=== PATIENT | female | born 1980 | race Caucasian/White ===

== ENCOUNTER → 2025-01-13 | Outpatient (CLI) | payer OTHER ==
[~2025-01-13] MED LIST: BCP; LORA.5 PO; OXYACE5T PO; POTA10T PO
== END ==
LOC: LAB SHORT 17:30 → LAB 17:30
DX: L02.01 Cutaneous abscess of face (principal)
CPT/HCPCS: 87070; 87077; 87147; 87186; 87205

== ENCOUNTER 2025-04-04 15:29 | Observation (INO) | payer OTHER ==
[~2025-04-04] VITALS: Ht 160 cm; Wt 92.2 kg
[2025-04-04 17:11] VITALS: BP 140/101
[2025-04-04] MEDS ORDERED: Amlodipine Bes2.5 MG PO (17:17)
[2025-04-04] MEDS ORDERED: Prinivil10 MG PO (17:17)
[2025-04-04] MEDS ORDERED: OMEP20ER PO (17:18)
[2025-04-04] MEDS ORDERED: Aspir 8181 MG PO (17:19)
[2025-04-04] MEDS ORDERED: Vancomycin (Pharmacy Consult) IV PRN (17:45)
[2025-04-04] MEDS ORDERED: FLU VACC TS2025-26(6MOS UP)/PF 45 MCG/0.5 ML SYRINGE IM ONE (17:50)
[2025-04-04] MEDS ORDERED: NS 1,000 ML IV SCH (18:00)
--- NOTE | 2025-04-04 18:36 | NUR ---
DIRECT ADMIT FROM HOME. DIAGNOSED WITH BACTEREMIA. GENERAL ADULT ADMISSION ORDERS PLACED PER DR. SALAZAR VIA TELEPHONE. PK CURRENTLY DOWN. PT UP AD [place]. PLAN FOR IV FLUIDS AND IV ANTIBIOTICS.
[2025-04-04 19:47] VITALS: BP 133/93
[2025-04-04] MEDS ORDERED: DiphenhydrAMINE HCl 50 MG/ML 1ML Vial IV PRN (21:40)
[2025-04-04] MEDS ORDERED: DiphenhydrAMINE HCl 50 MG/ML 1ML Vial IV ONE (21:40)
[2025-04-05 04:37] LABS: BASOPHILS ABSOLUTE AUTO 0.04 K/mm3 (0.00-0.23); BASOPHILS PERCENT AUTO 0 % (0-2); EOSINOPHILS ABSOLUTE AUTO 0.19 K/mm3 (0.00-0.68); EOSINOPHILS PERCENT AUTO 2 % (0-6); Hematocrit 30.6 % (33.0-51.0); Hemoglobin 9.7 g/dL (11.5-16.0); IMMATURE GRAN ABSOLUTE AUTO 0.03 K/mm3 (0.00-0.10); IMMATURE GRAN PERCENT AUTO 0 % (0-1); LYMPHOCYTES ABSOLUTE AUTO 4.00 K/mm3 (0.84-5.20); LYMPHOCYTES PERCENT AUTO 38 % (21-46); MONOCYTES ABSOLUTE AUTO 1.05 K/mm3 (0.16-1.47); MONOCYTES PERCENT AUTO 10 % (4-13); Mean Corpuscular HGB Conc 31.7 g/dL (31.5-36.5); Mean Corpuscular Volume 86 fL (80-100); NEUTROPHILS ABSOLUTE AUTO 5.22 K/mm3 (1.96-9.15); NEUTROPHILS PERCENT AUTO 50 % (41-73); NRBC ABSOLUTE 0.00 K/mm3 (0.00-0.02); NRBC Auto 0.0 /100 WBC (0.0-0.2); Platelet Count 516 K/mm3 (150-400); RDW Coefficient Variation 14.3 % (11.7-14.2); RDW Standard Deviation 45.1 fL (35.1-46.3)
--- NOTE | 2025-04-05 05:03 | NUR ---
SHIFT SUMMARY 44 YR F ADMITTED ON 04/04/25. FULL CODE. AFTER FIRST DOSE OF IV VANCOMYCIN, PT EXPERIENCED REDNESS IN HER FACE AND ITCHING OF HER HANDS. 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 IV BENADRY WAS ORDERED AND ADMINISTERED W/ GOOD RESULTS. PER DOC AND PHARMACY, NEXT DOSE OF VANCO WILL BE RAN AT 1/2 RATE. PRN ORDER FOR BENADRYL IN CASE OF REPEAT SX. PT IS A&O X4 AND INDEPENDANT IN THE ROOM. ABLE TO MAKE HER NEEDS KNOWN. SHE APPEARS TO HAVE RESTED COMFORTABLY THROUGH THE NIGHT. BED IS IN LOW POSITION AND CALL LIGHT IN REACH.
[2025-04-05 05:12] VITALS: BP 122/94
[2025-04-05 05:55] LABS: Alanine Aminotransfer (ALT/SGP 19.0 U/L (12-78); Albumin, Blood 3.1 g/dL (3.4-5.0); Albumin/Globulin Ratio 0.9 (0.8-1.8); Anion Gap 8.0 mmol/L (3-11); Aspartate Aminotrans (AST/SGOT 17.0 U/L (12-37); Bilirubin, Total 0.6 mg/dL (0.1-1.0); Blood Urea Nitrogen 12.0 mg/dL (8-24); CO2, Blood 21.0 mmol/L (21-32); Calcium, Blood 7.9 mg/dL (8.5-10.1); Chloride, Blood 111.0 mmol/L (98-108); Creatinine, Blood 0.72 mg/dL (0.40-1.00); Globulin, Blood 3.6 g/dL (2.2-4.0); Glucose, Blood 98.0 mg/dL (70-99); Potassium, Blood 3.7 mmol/L (3.5-5.5); Sodium, Blood 136.0 mmol/L (136-145); Total Protein, Blood 6.7 g/dL (6.4-8.2)
[2025-04-05 07:38] VITALS: BP 119/97
[2025-04-05] MEDS ORDERED: Sucralfate 1000MG / 10ML UD BTL PO SCH (11:30)
[2025-04-05 12:29] LABS: Ferritin, Serum 4.0 ng/mL (8-252); Total Iron Binding Capacity 410.0 ug/dL (250-450)
[2025-04-05] MEDS ORDERED: Sod Ferric Gluc Complx/Sucrose 125 MG in NS 100 ML IV ONE (13:20)
--- NOTE | 2025-04-05 13:20 | NUR ---
THIS RN ASKED TO HANG IV VANCO FOR PRIMARY RN ON BREAK. PER PATIENT SHE HAD ALLERGIC REACTION TO VANCO LAST NO AND WAS "ITCHY AND TURNED RED" NOTIFIED AND ORDER TO STOP VANCO. PATIENT IS LOW ON IRON AND WILL RECEIVE AN IV INFUSION AND THEN BE DISCHARGED TO HOME.
[2025-04-05 15:58] VITALS: BP 115/83
[2025-04-05] MEDS ORDERED: FERROUS GLUCON324 M3 PO (16:49)
[2025-04-05] MEDS ORDERED: SUCR1 PO (16:50)
--- NOTE | 2025-04-05 17:47 | NUR ---
DISCHARGE SUMMARY PT A/Ox4. VSS T/O SHIFT. DISCHARGED HOME TODAY, PICKED UP BY HER .
== END 2025-04-05 17:48 | disposition home or self-care (01) ==
LOC: MEDS 15:30 → UNDOADMOB 16:52 → MEDS 16:52
PROVIDERS: ADMIT Family Medicine
DX: K29.70 Gastritis, unspecified, without bleeding (principal); E61.1 Iron deficiency; I95.9 Hypotension, unspecified; L03.213 Periorbital cellulitis; I10 Essential (primary) hypertension; K21.9 Gastro-esophageal reflux disease without esophagitis; Z88.5 Allergy status to narcotic agent; Z88.8 Allergy status to other drugs, medicaments and biological substances; Z79.82 Long term (current) use of aspirin; Z79.899 Other long term (current) drug therapy
CPT/HCPCS: 36415; 80053; 82728; 83540; 83550; 83605; 83690; 85025; 87040; 93306; A9270; G0378; G0379; J1200; J2916; J3373; J7030; J7050

== ENCOUNTER → 2025-06-28 | Outpatient (CLI) | payer OTHER ==
[~2025-06-28] MED LIST changes: +Amlodipine Bes2.5 MG PO; +Aspir 8181 MG PO; +FERROUS GLUCON324 M3 PO; +OMEP20ER PO; +Prinivil10 MG PO; +SUCR1 PO
[2025-06-30 21:55] LABS: C. TRACHOMATIS BY TMA,THINPREP Negative (Negative); N. GONORRHOEAE BY TMA,THINPREP Negative (Negative)
== END ==
LOC: LAB SHORT 12:52 → LAB 12:52
PROVIDERS: Family Medicine
DX: Z01.419 Encounter for gynecological examination (general) (routine) without abnormal findings (principal)
CPT/HCPCS: 87491; 87591